=== PATIENT | male | born 2000 | race African-American/Black ===

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

== ENCOUNTER 2020-02-03 13:59 | Emergency (ER) | payer SELFPAY ==
--- NOTE | 2020-02-03 14:27 | ER Document Report ---
ED Medical Screen (RME) - General Chief Complaint: Testicular Swelling Stated Complaint: TESTICULAR SWELLING Time Seen by Provider: 02/03/20 14:16 TRAVEL OUTSIDE OF THE [place] IN LAST 30 DAYS: No - HPI Notes: 02/03/20 14:23 Patient is a 19-year-old male presenting with right testicular pain and swelling. The swelling began yesterday with associated 5 out of 10 pain and has worsened. The pain is worsened with standing and when the patient strains to have a bowel movement. Also reports right lower abdominal discomfort. I performed a brief medical screening exam on the patient determined that the pa tient needs further evaluation and management by main side provider. I have placed initial orders to help expedite care. - Related Data Allergies/Adverse Reactions: iodine Allergy (Verified 02/03/20 14:18) shrimp Allergy (Intermediate, Uncoded 09/16/19 02:48) itching, hives Past Medical History - Social History Family history: Reviewed & Not Pertinent - Past Medical History Cardiac Medical History: Reports: Hx DVT - left leg Pulmonary Medical History: Reports: Hx Asthma Renal/ Medical History: Denies: Hx Peritoneal Dialysis Past Surgical History: Reports: Hx Kidney (Renal Surgery) - bx of bilateral kidney, Hx Vascular Surgery - to break clot in left calf - Immunizations Immunizations up to date: Yes Hx Diphtheria, Pertussis, Tetanus Vaccination: Yes Physical Exam - Vital signs Vitals: Temp Pulse Resp BP Pulse Ox 98.7 F 102 H 16 131/69 H 100 02/03/20 14:04 02/03/20 14:04 02/03/20 14:04 02/03/20 14:04 02/03/20 14:04 Course - Vital Signs Vital signs: Temp Pulse Resp BP Pulse Ox 98.7 F 102 H 16 131/69 H 100 02/03/20 14:04 02/03/20 14:04 02/03/20 14:04 02/03/20 14:04 02/03/20 14:04
[2020-02-03 15:14] LABS: APPEARANCE,URINE CLEAR; BILIRUBIN,URINE NEGATIVE (NEGATIVE); COLOR,URINE YELLOW; GLUCOSE, URINE NEGATIVE (NEGATIVE); KETONES,URINE NEGATIVE (NEGATIVE); LEUKOCYTE ESTERASE,URINE SMALL (NEGATIVE); NITRITE,URINE NEGATIVE (NEGATIVE); PROTEIN,URINE NEGATIVE (NEGATIVE); URINE SPECIFIC GRAVITY 1.023
--- NOTE | 2020-02-03 16:18 | RADIOLOGY REPORT (SQ) ---
EXAM DESCRIPTION: U/S SCROTUM W/DOPPLER IMAGES COMPLETED DATE/TIME: 02/03/2020 4:09 pm REASON FOR STUDY: testicular swelling COMPARISON: None. TECHNIQUE: Static and realtime wheeler scale imaging of the scrotum and testes. Selected color Doppler and spectral images recorded to document blood flow. LIMITATIONS: None. FINDINGS: RIGHT: TESTICLE: Normal size. Normal echotexture. Normal blood flow. No mass. EPIDIDYMIS: The right epididymis is enlarged with increased vascularity compared to the left. HYDROCELE OR VARICOCELE: No. HERNIA OR EXTRA-TESTICULAR MASS: No. OTHER: Scrotal wall thickening on the right. LEFT: TESTICLE: Normal size. Normal echotexture. Normal blood flow. No mass. EPIDIDYMIS: Normal. HYDROCELE OR VARICOCELE: No. HERNIA OR EXTRA-TESTICULAR MASS: No. OTHER: No other significant finding. IMPRESSION: Enlarged right epididymis with increased flow consistent with epididymitis. There is ri ght-sided scrotal wall thickening as well. TECHNICAL DOCUMENTATION: JOB ID: [id number] [employer]- All Rights Reserved Reading location - IP/workstation name: [email or web address]
[2020-02-03 16:38] LABS: CHLAM PCR DETECTED (NOT DETECT)
[2020-02-03] MEDS ORDERED: CEFTRIAXONE INJ 250 MG VIAL IM ONE (16:57)
--- NOTE | 2020-02-03 17:04 | ER Document Report ---
ED General - General Chief Complaint: Testicular Swelling Stated Complaint: TESTICULAR SWELLING Time Seen by Provider: 02/03/20 14:16 Mode of Arrival: Ambulatory Information source: Patient TRAVEL OUTSIDE OF THE [place] IN LAST 30 DAYS: No - HPI Notes: Patient presents with 2 days of right scrotal swelling and pain. He states is been constant. He states it hurts worse with movement and it is better with rest. The pain does radiate into his right lower inguinal area. It is a throbbing sensation and moderate in intensity. He states he has some mild pain with urination that is a burning sensation. He also has some lower abdominal pain. No vomiting or diarrhea. No trauma. - Related Data Allergies/Adverse Reactions: iodine Allergy (Verified 02/03/20 14:18) shrimp Allergy (Intermediate, Uncoded 09/16/19 02:48) itching, hives Past Medical History - General Information source: Patient - Social History Smoking Status: Never Smoker Family History: Arthritis, CAD, CVA, Hyperlipidemia, Hypertension Patient has homicidal ideation: No - Past Medical History Cardiac Medical History: Reports: Hx DVT - left leg Pulmonary Medical History: Reports: Hx Asthma Renal/ Medical History: Denies: Hx Peritoneal Dialysis Past Surgical History: Reports: Hx Kidney (Renal Surgery) - bx of bilateral kidney, Hx Vascular Surgery - to break clot in left calf - Immunizations Immunizations up to date: Yes Hx Diphtheria, Pertussis, Tetanus Vaccination: Yes Review of Systems - Review of Systems Constitutional: denies: Chills, Fever Cardiovascular: denies: Chest pain, Palpitations Respiratory: denies: Cough, Short of breath -: Yes All other systems reviewed and negative Physical Exam - Vital signs Vitals: Temp Pulse Resp BP Pulse Ox 98.7 F 102 H 16 131/69 H 100 02/03/20 14:04 02/03/20 14:04 02/03/20 14:04 02/03/20 14:04 02/03/20 14:04 Interpretation: Normal - General General appearance: Appears well, Alert - HEENT Head: Normocephalic, Atraumatic Eyes: Normal Pupils: PERRL - Respiratory Respiratory status: No respiratory distress Chest status: Nontender Breath sounds: Normal Chest palpation: Normal - Cardiovascular Rhythm: Regular Heart sounds: Normal auscultation Murmur: No - Abdominal Inspection: Normal Distension: No distension Bowel sounds: Normal Tenderness: Nontender Organomegaly: No organomegaly - Genitourinary Tenderness: Testicle tender, Epididymis tender - Right Scrotum: Swelling - Back Back: Normal, Nontender - Extremities General upper extremity: Normal inspection, Nontender, Normal color, Normal ROM, Normal temperature General lower extremity: Normal inspection, Nontender, Normal color, Normal ROM, Normal temperature, Normal weight bearing. No: Claudia's sign - Neurological Neuro grossly intact: Yes Cognition: Normal Orientation: AAOx4 [place] Coma Scale Eye Opening: Spontaneous [place] Coma Scale Verbal: Oriented [place] Coma Scale Motor: Obeys Commands Leidy Coma Scale Total: 15 Speech: Normal Motor strength normal: LUE, RUE, LLE, RLE Sensory: Normal - Psychological Associated symptoms: Normal affect, Normal mood - Skin Skin Temperature: Warm Skin Moisture: Dry Skin Color: Normal Course - Vital Signs Vital signs: Temp Pulse Resp BP Pulse Ox 98.7 F 102 H 16 131/69 H 100 02/03/20 14:04 02/03/20 14:04 02/03/20 14:04 02/03/20 14:04 02/03/20 14:04 - Laboratory Laboratory results interpreted by me: 02/03/20 02/03/20 14:37 14:37 Urine Urobilinogen 2.0 H Ur Leukocyte Esterase SMALL H Chlamydia DNA (PCR) DETECTED H - Diagnostic Test Radiology reviewed: Image reviewed, Reports reviewed Discharge - Discharge Clinical Impression: Acute epididymitis Condition: Stable Disposition: HOME, SELF-CARE Instructions: Doxycycline ([facility]), Epididymitis ([facility]), Chlamydia ([facility]) Additional Instructions: Call Urology as soon as possible to arrange follow up Please inform your sexual partners they need to be evaluated for Chlymydia Prescriptions: Tramadol HCl [Ultram] 50 mg PO Q6 PRN 3 Days #12 tablet PRN Reason: Doxycycline Hyclate [Vibramycin] 100 mg PO BID 10 Days #20 capsule Forms: Return to Work Referrals: PATRICK PARKER MD [NO LOCAL MD] - Follow up in 3-5 days
[2020-02-03] MEDS ORDERED: LIDOCAINE 1% INJ (10 MG/ML) 10 ML MDV INJ ONE (17:17)
[2020-02-03 18:15] VITALS: BP 128/65
== END 2020-02-03 18:15 | disposition home or self-care (01) ==
LOC: ER 13:59
DX: N45.1 Epididymitis (principal); N50.89 Other specified disorders of the male genital organs; N50.82 Scrotal pain; R10.31 Right lower quadrant pain; R30.9 Painful micturition, unspecified; R10.30 Lower abdominal pain, unspecified; Z88.8 Allergy status to other drugs, medicaments and biological substances; J45.909 Unspecified asthma, uncomplicated
CPT/HCPCS: 99285; 96372; 81001; 87491; 87591; 76870; 93976; J0696